=== PATIENT | female | born 1960 | race Caucasian/White ===

== ENCOUNTER 2023-07-19 17:48 | Emergency (ER) | payer MEDICAID, SELFPAY ==
[~2023-07-19] VITALS: Ht 157.5 cm; Wt 98.0 kg
[~2023-07-19 17:48] MED LIST: HTN MED; METF-1211 PO
[2023-07-19 17:55] VITALS: BP 138/69; PULSE 87; RESP 16; TEMP 98.3
[2023-07-19] MEDS ORDERED: LISI20TA24 PO (18:01)
[2023-07-19] MEDS ORDERED: ATOR-2 PO (18:01)
[2023-07-19] MEDS ORDERED: LEVO125T95 PO (18:01)
[2023-07-19] MEDS ORDERED: METF-446 PO (18:01)
== END 2023-07-19 21:24 | disposition left against medical advice (07) ==
LOC: EMS 17:49
DX: F41.9 Anxiety disorder, unspecified (principal); Z53.21 Procedure and treatment not carried out due to patient leaving prior to being seen by health care provider
CPT/HCPCS: 99281; Z7502